=== PATIENT | female | born 1995 | race Caucasian/White ===

== ENCOUNTER 2018-07-03 23:12 | Emergency (ER) | payer OTHER ==
[~2018-07-03] VITALS: Ht 157.5 cm; Wt 53.1 kg
[2018-07-03 23:15] VITALS: Ht 157.5 cm; Wt 53.1 kg
[2018-07-04 01:15] VITALS: BP 130/83
[2018-07-04 01:39] LABS: AMPHETAMINE QUAL UR NONE DETECTED (See below)
== END 2018-07-04 01:16 | disposition home or self-care (01) ==
LOC: ED 23:12
PROVIDERS: Emergency Medicine
DX: J45.901 Unspecified asthma with (acute) exacerbation (principal)
CPT/HCPCS: J2930; J7620

== ENCOUNTER 2019-01-12 19:39 | Emergency (ER) | payer OTHER ==
[~2019-01-12] VITALS: Ht 154.9 cm; Wt 50.8 kg
[2019-01-12 19:41] VITALS: Ht 154.9 cm; Wt 50.8 kg
[2019-01-12 21:04] LABS: BASOPHIL % 0.4 % (0-2)
[2019-01-12 21:06] LABS: RED CELL DISTRIBUTION WIDTH 17.9 % (11.5-14.5)
[2019-01-12 21:07] LABS: PLATELET COUNT 581 x10^3mcL (130-400)
[2019-01-12 23:34] VITALS: BP 120/94
== END 2019-01-12 23:34 | disposition home or self-care (01) ==
LOC: ED 19:39
PROVIDERS: Emergency Medicine
DX: O03.9 Complete or unspecified spontaneous abortion without complication (principal); J45.909 Unspecified asthma, uncomplicated
CPT/HCPCS: J2270; J2405; J7030; Q0092